=== PATIENT | female | born 1990 | race African-American/Black ===

== ENCOUNTER 2016-09-02 11:21 | Inpatient (IN) ==
[2016-09-02] MEDS ORDERED: FLUMAZENIL 0.5 MG/5 ML VIAL IV ONE ×3 (11:38→13:56)
[2016-09-02] MEDS ORDERED: NALOXONE 0.4 MG/ML VIAL IV STA (11:39)
[2016-09-02] MEDS ORDERED: FLUMAZENIL 1 MG/10 ML VIAL IV ONE ×3 (11:39→14:35)
[2016-09-02] MEDS ORDERED: NALOXONE 0.4 MG/ML VIAL ONE (11:40)
[2016-09-02 11:44] LABS: Basophils % 0.7 % (0.0-0.8); Eosinophils % 0.3 % (0.00-10.9); Hematocrit 32.6 VOL% (35.7-47.0); Hemoglobin 10.1 GM/DL (12.0-16.0); Immature Granulocytes % 0.3 %; Immature Granulocytes Absolute 0.02 #; Lymphocytes # 2.6 10*3/uL (1.4-4.0); Lymphocytes % 44.8 % (21.3-54.2); Mean Corpuscular Hemoglobin 27 PG (27-34); Mean Corpuscular Volume 87.9 FL (87-102); Mean Platelet Volume 11.1 FL (9.6-12.0); Monocytes # 0.4 10*3/uL (0.11-0.8); Monocytes % 6.1 % (1.7-12.7); Neutrophils # 2.8 10*3/uL (1.4-7.4); Neutrophils % 47.8 % (38.7-73.9); Platelet Count 175 T/CUMM (130-400); Red Blood Count 3.71 MC/CUMM (3.8-5.5); Red Cell Distribution Width 13.5 % (9.3-17.3); White Blood Count 5.8 T/CUMM (4-12)
[2016-09-02 11:56] LABS: Blood Urea Nitrogen 9 MG/DL (7-18); Calcium 8.8 MG/DL (8.5-10.1); Glucose 66 MG/DL (74-106); Osmolality,Calculated 288.4 MOS/KG (273-304); Potassium 3.6 MMOL/L (3.5-5.1); Sodium 147 MMOL/L (136-145)
[2016-09-02 11:58] LABS: Salicylate < 2.8 MG/DL (2.8-20)
[2016-09-02 11:59] LABS: Acetaminophen < 2.0 UG/ML (10-30)
--- NOTE | 2016-09-02 12:51 | XRay Report ---
XR chest 1V portable Indication: Overdose Comparison: Chest x-ray dated July 30, 2015 Technique: Single frontal view of the chest Findings: Heart size appears within normal limits. No focal consolidation, pleural effusion, or pneumothorax. Osseous and surrounding soft tissue structures demonstrate no acute abnormality. IMPRESSION: No acute cardiopulmonary process demonstrated. PROCEDURE INTERPRETED AT [facility] DEPARTMENT OF RADIOLOGY Final Report Signed by: Dr Terry Lin
[2016-09-02] MEDS ORDERED: ACETAMINOPHEN 325 MG TABLET PO PRN (13:14)
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
[2016-09-02] MEDS ORDERED: FLUMAZENIL 1 MG/10 ML VIAL IV PRN ×2 (15:59)
[2016-09-02 16:14] LABS: Apearance,Urine Slightly Hazy (Clear); Bacteria,Urine Few /HPF (Few); Bilirubin,Urine Negative (Negative); Blood, Urine Negative (Negative); Glucose,Urine (UA) Negative (Negative); Hyaline Casts,Urine 1 /LPF (0-3); Ketones,Urine Negative (Negative); Mucus,Urine Few /LPF (Occasional); Nitrite,Urine Positive (Negative); Protein,Urine Negative; RBC,Urine 1 /HPF (0-4); Squamous Epithelial Cell,Urine Occasional /HPF (0-10); Urine Color Yellow (Yellow); Urine Specific Gravity 1.016 (1.001-1.035); Urine Urobilinogen < 2.0 EU/DL (0.2-1.0); WBC,Urine 11 /HPF (0-6)
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
[2016-09-02 16:22] LABS: Barbiturates Screen,Urine Negative (Negative); Benzodiazepines Screen,Urine Positive (Negative); Cannabinoid Screen,Urine Positive (Negative); Opiate Screen,Urine Negative (Negative); Phencyclidine Screen,Urine Negative (Negative)
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
[2016-09-02] MEDS: SODIUM CHLORIDE 0.9% 1,000 ML IV SCH (17:18)
[2016-09-03] MEDS: SODIUM CHLORIDE 0.9% 1,000 ML IV SCH ×4 (04:01→18:56)
[2016-09-03 06:23] LABS: Basophils % 0.6 % (0.0-0.8); Eosinophils % 0.4 % (0.00-10.9); Hematocrit 33.9 VOL% (35.7-47.0); Hemoglobin 10.2 GM/DL (12.0-16.0); Immature Granulocytes % 0.2 %; Immature Granulocytes Absolute 0.01 #; Lymphocytes # 2.3 10*3/uL (1.4-4.0); Mean Corpuscular HGB Conc 30.1 GM/DL (32-36); Mean Corpuscular Hemoglobin 27 PG (27-34); Mean Corpuscular Volume 89.7 FL (87-102); Mean Platelet Volume 11.1 FL (9.6-12.0); Monocytes # 0.3 10*3/uL (0.11-0.8); Monocytes % 5.3 % (1.7-12.7); Neutrophils # 2.1 10*3/uL (1.4-7.4); Neutrophils % 44.5 % (38.7-73.9); Platelet Count 152 T/CUMM (130-400); Red Blood Count 3.78 MC/CUMM (3.8-5.5); Red Cell Distribution Width 13.6 % (9.3-17.3); White Blood Count 4.7 T/CUMM (4-12)
[2016-09-03 06:48] LABS: Calcium 8.7 MG/DL (8.5-10.1); Osmolality,Calculated 291.3 MOS/KG (273-304); Potassium 4.1 MMOL/L (3.5-5.1)
--- NOTE | 2016-09-03 08:57 | Hospitalist Progress Note ---
Assessment and Plan (1) HTN (hypertension) Status: Acute Assessment and plan: Good control currently Current Visit: Yes (2) Suicide attempt Status: Acute Assessment and plan: Still depressed and needs to be seen by lines I will not discharge her until she is assessed by a psychiatric professional Current Visit: Yes (3) Pyuria Status: Acute Assessment and plan: Check a urine culture Current Visit: Yes Hospitalist: Subjective Interval history: Patient without complaints today she wouldn't really talk to me she would open her eyes but would not answer any questions she said she was sleeping nurses tell me she's been extremely depressed and says she had noted that she can continued on Exam - Constitutional Vitals: Period Temp Pulse Resp BP Sys/Leonardo Pulse Ox Last 24 Hr 97.9 F-98.7 F 54-82 11-76 90-112/50-79 96-100 Exam: Constitutional: General appearance is normal Eyes: Pupils equal round react to light and accommodation conjunctiva and lids are normal Neck: supple without masses Respiratory: Respiratory effort is normal. Lungs are clear to auscultation. Resonant to percussion. Cardiac: Regular rate and rhythm without murmur rub or gallop. PMI at the midclavicular line by palpation. Carotid arteries 2+ palpation no bruits GI: Bowel sounds normoactive, no tenderness or rebound tenderness, no organomegaly Extremities: no clubbing cyanosis or edema Results - Labs CBC & BMP: 09/03/16 05:47 09/03/16 05:47
[2016-09-03] MEDS: NICOTINE 21 MG/24 HR PATCH TRANSDERM SCH (10:13)
[2016-09-04] MEDS: SODIUM CHLORIDE 0.9% 1,000 ML IV SCH ×2 (03:26→07:31)
--- NOTE | 2016-09-04 07:32 | Hospitalist Progress Note ---
Assessment and Plan (1) HTN (hypertension) Status: Acute Assessment and plan: Good control currently Current Visit: Yes (2) Suicide attempt Status: Acute Assessment and plan: Still depressed and needs to be seen by lines I will not discharge her until she is assessed by a psychiatric professional 09/04 we will ask [facility] to come evaluate her again Current Visit: Yes (3) Pyuria Status: Acute Assessment and plan: Check a urine culture, pending currently Current Visit: Yes Hospitalist: Subjective Interval history: Patient was in the bathroom this morning I can see her from the door she's telling the [place] nurses that she is wanting to go home a 72 hour hold was placed on her last night she's not had any chest pain or chest tightness she says she's no longer suicidal Exam - Constitutional Vitals: Period Temp Pulse Resp BP Sys/Leonardo Pulse Ox Last 24 Hr 97.5 F-98.5 F 58-85 12-24 92-119/46-83 95-100 Exam: Constitutional: General appearance is normal Eyes: Pupils equal round react to light and accommodation conjunctiva and lids are normal Neck: supple without masses Respiratory: Respiratory effort is normal. Lungs are clear to auscultation. Resonant to percussion. Cardiac: Regular rate and rhythm without murmur rub or gallop. PMI at the midclavicular line by palpation. Carotid arteries 2+ palpation no bruits GI: Bowel sounds normoactive, no tenderness or rebound tenderness, no organomegaly Extremities: no clubbing cyanosis or edema Results - Labs CBC & BMP: 09/03/16 05:47 09/03/16 05:47
[2016-09-04] MEDS: NICOTINE 21 MG/24 HR PATCH TRANSDERM SCH (09:02)
[2016-09-04 17:26] VITALS: BP 135/74
[2016-09-05] MEDS: NICOTINE 21 MG/24 HR PATCH TRANSDERM SCH (08:19)
[2016-09-05] MEDS ORDERED: CEFUROXIME 250 MG TABLET PO SCH (09:00)
--- NOTE | 2016-09-05 09:23 | Physician Query Form ---
CLICK EDIT DOCUMENT TO SELECT QUERY ANSWER --> OK --> SIGN Marisela Anglin RN, CCDS Certified Clinical Car Salesman W) [phone] (f) [phone] [email or web address] PROVIDERS: Make your selection(s) from the choices in EACH section by typing an "x" and enter comments in the comment section. Please use your independent medical judgment in providing your response. This request does not imply that any particular answer is desired or expected. CLINICAL INDICATORS: (Providers should not edit this section) The medical record indicates that the patient was admitted with an OD, pyuria on the , Urine CS is showing >100,000 Escherichia coli, Urine Nitrate Positive and the patient is on Ceftin. Based on the above, could you clarify the appropriate diagnosis, if significant , that supports the above abnormalities and additional evaluation, monitoring, and/or treatment rendered: ( ) patient is being treated or monitored for UTI ( ) patient is not being treated or monitored for UTI ( ) Other, please specify: ( ) Clinically unable to determine COMMENTS: Use of terms such as suspected, likely, or probable (associated with a specific diagnosis that is being evaluated, monitored, or treated as if it exists) are acceptable and can be restated in the discharge summary if not ruled out. MTDD
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
[2016-09-05] MEDS: SODIUM CHLORIDE 0.9% 1,000 ML IV SCH (10:22)
== END 2016-09-05 12:55 | disposition home or self-care (01) | DRG 918 ==
LOC: EDBD → EDUNIT# → N.ED 11:21 → N.EDINP 12:49 → N.ICU 15:22
PROVIDERS: ADMIT Internal Medicine; ATTEND Internal Medicine

== ENCOUNTER 2018-10-01 11:58 | Inpatient (IN) ==
[2018-10-01] MEDS ORDERED: HYDROmorphone 2 MG/1 ML VIAL ONE ×2 (12:54→14:47)
[2018-10-01] MEDS ORDERED: ONDANSETRON 4 MG/2 ML VIAL ONE ×3 (12:54→14:47)
[2018-10-01] MEDS ORDERED: MICROFIBRILLAR COLLAGEN POWDER 1 GM CAN TOP ONE (13:09)
[2018-10-01] MEDS ORDERED: ONDANSETRON 4 MG/2 ML VIAL IV STA (13:17)
[2018-10-01] MEDS ORDERED: HYDROmorphone 2 MG/1 ML VIAL IV STA (13:17)
[2018-10-01] MEDS ORDERED: BISACODYL 10 MG SUPP RECTAL PRN (14:40)
[2018-10-01] MEDS ORDERED: BENZOCAINE/MENTHOL LOZENGE 18/BOX PO PRN (14:40)
[2018-10-01] MEDS ORDERED: ACETAMINOPHEN 325 MG TABLET PO PRN (14:40)
[2018-10-01] MEDS ORDERED: PROPOFOL 200 MG/20 ML VIAL IV ONE (14:45)
[2018-10-01] MEDS ORDERED: SEVOFLURANE 1 UNIT/15 MINUTE INH ONE (14:45)
[2018-10-01] MEDS ORDERED: ACETAMINOPHEN 1,000 MG/100 ML VIAL IV ONE (14:46)
[2018-10-01] MEDS ORDERED: fentaNYL 100 MCG/2 ML VIAL ONE (14:46)
[2018-10-01] MEDS ORDERED: GLYCOPYRROLATE 0.4 MG/2 ML VIAL ONE (14:46)
[2018-10-01] MEDS ORDERED: MIDAZOLAM 2 MG/2 ML VIAL ONE (14:46)
[2018-10-01] MEDS ORDERED: LACTATED RINGERS 2,000 ML IV ONE (14:47)
[2018-10-01] MEDS ORDERED: ROCURONIUM 100 MG/10 ML VIAL IV ONE (14:47)
[2018-10-01] MEDS ORDERED: PROMETHAZINE 25 MG/1 ML VIAL ONE (14:47)
[2018-10-01] MEDS ORDERED: NEOSTIGMINE 10 MG/10 ML VIAL ONE (14:47)
[2018-10-01] MEDS ORDERED: MEPERIDINE 25 MG/1 ML VIAL ONE (14:48)
[2018-10-01] MEDS ORDERED: ONDANSETRON 4 MG/2 ML VIAL IV PRN (15:03)
[2018-10-01] MEDS ORDERED: MEPERIDINE 25 MG/1 ML VIAL IV PRN (15:03)
[2018-10-01] MEDS ORDERED: PROMETHAZINE INJ 25 MG in SODIUM CHLORIDE 0.9% 50 ML IV PRN (15:03)
[2018-10-01] MEDS ORDERED: HYDROmorphone 2 MG/1 ML VIAL IV PRN (15:03)
[2018-10-01] MEDS: LACTATED RINGERS 1,000 ML IV SCH ×2 (15:10→19:53)
[2018-10-01 15:39] LABS: Apearance,Urine CLEAR (Clear); Bacteria,Urine Occasional /HPF (Few); Bilirubin,Urine Negative (Negative); Blood, Urine Negative (Negative); Glucose,Urine (UA) Negative (Negative); Ketones,Urine Negative (Negative); Mucus,Urine Occasional /LPF (Occasional); Nitrite,Urine Negative (Negative); Protein,Urine Negative; RBC,Urine 1 /HPF (0-4); Squamous Epithelial Cell,Urine Occasional /HPF (0-10); Urine Color Yellow (Yellow); Urine Specific Gravity 1.055 (1.001-1.035); Urine Urobilinogen < 2.0 EU/DL (0.2-1.0); WBC,Urine 1 /HPF (0-6)
[2018-10-01] MEDS ORDERED: INFLUENZA VIRUS VACCINE 0.5 ML SYRINGE IM ONE (16:28)
[2018-10-01] MEDS: ONDANSETRON 4 MG/2 ML VIAL IV PRN ×2 (18:04→21:02)
[2018-10-01] MEDS: HYDROmorphone 2 MG/1 ML VIAL IV PRN ×2 (18:05→20:56)
[2018-10-01] MEDS ORDERED: KETOROLAC 30 MG/1 ML VIAL IV PRN (19:37)
[2018-10-01] MEDS ORDERED: KETOROLAC 30 MG/1 ML VIAL ONE (19:39)
[2018-10-01] MEDS: ceFAZolin 1,000 MG in SYRINGE 1 EACH IV SCH (20:46)
[2018-10-02] MEDS: ceFAZolin 1,000 MG in SYRINGE 1 EACH IV SCH (04:16)
[2018-10-02] MEDS: IBUPROFEN 800 MG TABLET PO PRN ×2 (04:23→18:24)
[2018-10-02 05:09] LABS: Basophils % 0.4 % (0.0-0.8); Eosinophils % 0.4 % (0.00-10.9); Hematocrit 26.5 VOL% (35.7-47.0); Hemoglobin 8.2 GM/DL (12.0-16.0); Immature Granulocytes % 0.3 %; Immature Granulocytes Absolute 0.02 #; Lymphocytes # 3.1 10*3/uL (1.4-4.0); Lymphocytes % 45.2 % (21.3-54.2); Mean Corpuscular HGB Conc 30.9 GM/DL (32-36); Mean Corpuscular Hemoglobin 28 PG (27-34); Mean Corpuscular Volume 89.8 FL (87-102); Mean Platelet Volume 10.2 FL (9.6-12.0); Monocytes # 0.4 10*3/uL (0.11-0.8); Monocytes % 5.6 % (1.7-12.7); Neutrophils # 3.3 10*3/uL (1.4-7.4); Neutrophils % 48.1 % (38.7-73.9); Platelet Count 187 T/CUMM (130-400); Red Blood Count 2.95 MC/CUMM (3.8-5.5); Red Cell Distribution Width 13.2 % (9.3-17.3); White Blood Count 6.8 T/CUMM (4-12)
[2018-10-02] MEDS: FERROUS SULFATE 325 MG TABLET PO SCH ×2 (09:07→22:29)
[2018-10-02] MEDS: METOCLOPRAMIDE 10 MG TABLET PO SCH ×2 (09:09→17:04)
[2018-10-02] MEDS: DOCUSATE SODIUM 100 MG CAPSULE PO PRN ×2 (09:10→22:28)
[2018-10-02] MEDS: MAGNESIUM HYDROXIDE SUSP 30 ML UDCUP PO PRN (14:53)
[2018-10-03] MEDS: METOCLOPRAMIDE 10 MG TABLET PO SCH ×2 (00:37→08:00)
[2018-10-03 07:51] VITALS: BP 124/69
[2018-10-03] MEDS: DOCUSATE SODIUM 100 MG CAPSULE PO PRN (07:58)
[2018-10-03] MEDS: FERROUS SULFATE 325 MG TABLET PO SCH (08:00)
[2018-10-03] MEDS: MAGNESIUM HYDROXIDE SUSP 30 ML UDCUP PO PRN (09:26)
== END 2018-10-03 11:15 | disposition home or self-care (01) | DRG 513 ==
LOC: EDBD → EDUNIT# → N.ED 11:58 → N.EDINP 12:35 → N.OB 15:32
PROVIDERS: ADMIT Obstetrics & Gynecology; ATTEND Obstetrics & Gynecology

== ENCOUNTER 2018-12-26 14:24 | Observation (INO) ==
[2018-12-26] MEDS ORDERED: MORPHINE 4 MG/1 ML VIAL IM STA (16:50)
[2018-12-26] MEDS ORDERED: ONDANSETRON 4 MG/2 ML VIAL IM STA (16:50)
[2018-12-26 18:59] LABS: Apearance,Urine Slightly Hazy (Clear); Bilirubin,Urine Negative (Negative); Blood, Urine Negative (Negative); Glucose,Urine (UA) Negative (Negative); Ketones,Urine Negative (Negative); Mucus,Urine Few /LPF (Occasional); Nitrite,Urine Negative (Negative); Protein,Urine Negative; RBC,Urine 2 /HPF (0-4); Squamous Epithelial Cell,Urine Occasional /HPF (0-10); Urine Color Yellow (Yellow); Urine Specific Gravity 1.018 (1.001-1.035); WBC,Urine 6 /HPF (0-6)
[2018-12-26 19:38] LABS: Basophils % 0.3 % (0.0-0.8); Eosinophils % 0.2 % (0.00-10.9); Hematocrit 31.8 VOL% (35.7-47.0); Hemoglobin 9.7 GM/DL (12.0-16.0); Immature Granulocytes % 0.4 %; Immature Granulocytes Absolute 0.05 #; Lymphocytes # 2.7 10*3/uL (1.4-4.0); Lymphocytes % 21.5 % (21.3-54.2); Mean Corpuscular HGB Conc 30.5 GM/DL (32-36); Mean Corpuscular Volume 87.1 FL (87-102); Mean Platelet Volume 10.5 FL (9.6-12.0); Monocytes % 5.3 % (1.7-12.7); Neutrophils % 72.3 % (38.7-73.9); Platelet Count 267 T/CUMM (130-400); Red Blood Count 3.65 MC/CUMM (3.8-5.5); Red Cell Distribution Width 13.7 % (9.3-17.3); White Blood Count 12.5 T/CUMM (4-12)
[2018-12-26 19:52] LABS: INR 0.9; PT Patient Result 10.1 SECS; Partial Thromboplastin Time 26.9 SECS (0-40)
[2018-12-26 19:57] LABS: Alanine Aminotransferase 10 U/L (13-56); Albumin 3.5 G/DL (3.4-5.0); Alkaline Phosphatase 58 U/L (45-117); Aspartate Amino Transferase 5 U/L (0-37); Bilirubin,Total < 0.39 MG/DL (0.2-1.0); Blood Urea Nitrogen 5 MG/DL (7-18); Calcium 9.1 MG/DL (8.5-10.1); Glucose 103 MG/DL (74-106); Osmolality,Calculated 273.5 MOS/KG (273-304); Total Protein 7.3 G/DL (6.4-8.3)
[2018-12-26] MEDS ORDERED: ONDANSETRON 4 MG/2 ML VIAL IV PRN (20:03)
[2018-12-26] MEDS ORDERED: MAGNESIUM HYDROXIDE SUSP 30 ML UDCUP PO PRN (20:03)
[2018-12-26] MEDS ORDERED: MEPERIDINE 25 MG/1 ML VIAL IV PRN (20:03)
[2018-12-26 20:16] LABS: Hepatitis B Surface Ag Quant < 0.10 Index; Hepatitis B Surface Ag Result Negative (Negative); Rubella Antibody IgG 49.4 IU/ML
[2018-12-26] MEDS: LACTATED RINGERS 1,000 ML IV SCH (21:17)
[2018-12-26] MEDS ORDERED: AZITHROMYCIN INJ 500 MG in SODIUM CHLORIDE 0.9% 250 ML IV SCH (23:00)
[2018-12-26] MEDS ORDERED: cefTRIAXone 1,000 MG in SYRINGE 1 EACH IV SCH (23:00)
[2018-12-27] MEDS: LACTATED RINGERS 1,000 ML IV SCH (06:41)
[2018-12-27 07:22] LABS: HIV Antigen/Antibody Result Nonreactive (Nonreactive)
[2018-12-27 07:24] VITALS: BP 91/47
[2018-12-27] MEDS ORDERED: AZITHROMYCIN 250 MG TABLET PO SCH (09:00)
[2018-12-27] MEDS ORDERED: AZITHROMYCIN 250 MG TABLET PO ONE ×2 (09:16→11:00)
== END 2018-12-27 12:30 | disposition home or self-care (01) ==
LOC: N.ED 14:24 → N.EDINP 18:45 → INTOOBSV 18:45 → N.2E 19:10 → N.OB 22:47
PROVIDERS: ADMIT Obstetrics & Gynecology; ATTEND Obstetrics & Gynecology